=== PATIENT | female | born 1950 | race Caucasian/White ===

== ENCOUNTER 2019-10-23 09:11 | Day surgery (SDC) | payer OTHER, MEDICARE, SELFPAY ==
[2019-10-15 12:47] VITALS: BMI 29.2
[2019-10-23] VITALS (17 sets, daily range): BP systolic 81–150; BP diastolic 42–77; PULSE 57–80; RESP 8–20; TEMP 35.6–36.4; O2SAT 89–99; BMI 29.2
--- NOTE | 2019-10-23 06:00 | DI.RAD.S_ITS ---
PROCEDURE: XR KNEE LT 1TO2V INDICATIONS: post op TECHNIQUE: 2 view(s) of the knee acquired. COMPARISON: X-ray, Left Knee, 07/17/2019. FINDINGS: Bones: Patient is status post knee joint arthroplasty. Hardware components are in expected positions. Visualized bony structures are intact. Soft tissues: Overlying postoperative changes are noted. IMPRESSION: Left knee arthroplasty with prosthesis in anatomic alignment. Dictated by: Antonio Santiago M.D. on 10/23/2019 at 13:55 Approved by: Antonio Santiago M.D. on 10/23/2019 at 13:55
[2019-10-23] MEDS: CELECOXIB 200 MG CAPSULE PO (09:48)
[2019-10-23] MEDS: PREGABALIN 75 MG CAPSULE PO (09:48)
[2019-10-23] MEDS: ACETAMINOPHEN 325 MG TABLET 975 MG PO (09:48)
[2019-10-23] MEDS: LACTATED RINGERS 1,000 ML 42 ML IV ×2 (10:00→11:49)
--- NOTE | 2019-10-23 10:02 | PM.PREOP ---
Pre-operative Note Interval Note History & Physical reviewed/Exam performed by Physician: Yes Changes to H&P: No
--- NOTE | 2019-10-23 10:16 | PM.OP.1 ---
Operative Date/Time/Diagnoses Date of procedure: 10/23/19 Time of procedure: 12:10 Pre-op diagnosis: Left knee osteoarthritis Post-op diagnosis: same Procedure & Clinicians Procedure: Left total knee replacement Same procedure as scheduled: Yes Indications: The patient has had progressively worsening left knee pain with radiographic changes consistent with arthritis. Non-operative management has failed and the patient has requested total knee replacement. The risks, benefits and alternatives to surgery were discussed with the patient prior to proceeding. Risks discussed included, but were not limited to, failure to relieve pain, stiffness, infection, nerve damage, deep venous thrombosis, pulmonary embolism, stroke, coma, heart attack, permanent paralysis and , as well as the potential need for eventual revision of the prosthetic. Surgeon: Newton Gasca Rolling Down Machine Operator: Valentin Hernandez Click Yes if Unassisted: No Anesthesia Type: General, Spinal and Local Operative Notes Findings: Severe medial and moderate patellofemoral osteoarthritis. Closure Type: primary Specimen(s): none sent Prosthetic devices, grafts, tissues, transplants, or devices: Implants used in this procedure were manufactured by the [employer] and [employer] and included the BCS II Journey total knee replacement with a size 5 left Oxinium femoral component, a size 4 left non porous tibial base plate, a 10 mm cross-linked polyethylene tibial insert and a 32 mm all oval Chuyita II patellar component. Applied: implant(s) Estimated Blood Loss (mL): 25 Blood products transfused: none Tourniquet time (min): 50 Procedure in detail: The patient was seen in the pre-operative area, where the left knee was identified as the operative site and this was marked with my initials. The patient received pre-operative antibiotics, and was taken to the operating room and placed on the operative table in the supine position. After satisfactory anesthesia, a stenciling machine tender out? was performed. The left leg was encircled with a tourniquet about the proximal thigh, and the leg was prepared from the toes to the tourniquet with ChloroPrep in the usual fashion and draped through sterile drapes. The leg was elevated and exsanguinated with Eschmark bandage and the tourniquet inflated to 250 mmHg pressure. The knee was approached through an approximately 18 cm incision centered over the patella and carried into the knee through a medial parapatellar arthrotomy. The anterior osteophytes and soft tissues were removed. The rotational landmarks of Arnett's line and the transepicondylar axis were marked on the femur with electrocautery, and intramedullary guide holes for the femur and tibia were created. The distal femoral cut was made in 6 degrees of valgus using the intramedullary guide at the primary cut setting. The proximal tibial cut was then made using the intramedullary guide, taking 9 mm of bone off the less involved side. The extension gap was checked and the rotation of the femoral component confirmed with the gap balancing blocks. The anterior, posterior and chamfer cuts were then made. The posterior osteophytes and soft tissues were then removed. The posterior capsule was injected with part of a mixture of 60 ml 0.25% Marcaine mixed with 20 ml Exparel and 4 mg of morphine for post-operative pain control. The remainder of this mixture was injected into the capsule and subcutaneous tissues during cement curing. The tibia was prepared with the rotation set by an extra medullary guide. Trial tibial and femoral components were then placed and the intercondylar notch cut through the femoral trial. Range of motion was 0-135 degrees, with good stability throughout the range. The patella was then cut to accommodate the patellar prosthetic. There was no need for a lateral release. The trials were then removed, and the femoral hole plugged with a bone plug. The bone was prepared with pulsatile lavage, and dried with a sponge. Cement was applied and the final prosthetics placed. Excess cement was removed during and after cement curing. After confirming there was no extruded cement posteriorly, the final tibial insert was placed. The knee was copiously irrigated and the tourniquet deflated. Hemostasis was obtained. The capsule was closed with interrupted # 2 polyester sutures. The subcutaneous layer was closed with 3-0 Vicryl, and the skin with a running 3-0 V-Lock suture and SteriStrips. An Aquacel Ag dressing was applied and the patient was taken to recovery having tolerated the procedure well. Complications: none Post-operative Condition: stable Disposition: PACU Plan for aftercare: The patient will be maintained on a standard total knee replacement protocol with weight bearing as tolerated. The patient will receive aspirin and sequential compression devices for DVT prophylaxis. The patient will be discharged home when safe for the home environment.
[2019-10-23] MEDS: CEFAZOLIN 2 GM/100 ML FROZ.PIGGY IV (10:45)
[2019-10-23] MEDS: TRANEXAMIC ACID 1,000 MG VIAL 1000 MG INJ ×2 (11:00→12:00)
--- NOTE | 2019-10-23 11:18 | SUR.OPER ---
Supine on padded OR bed. Pillow under head, arms secured on padded armboards <90 degree abduction. Safety belt across torso. Non-operative leg secured with tape over blanket over lower leg. Operative leg secured in DeMayo/Tye positioner. Foam padded brace at thigh of operative leg.
[2019-10-23] MEDS: BUPIVACAINE 0.25% W/ EPI (PF) 10 ML VIAL 60 ML INJ (11:22)
[2019-10-23] MEDS: BUPIVACAINE LIPOSOME 266 MG/20 ML VIAL INJ (11:24)
[2019-10-23] MEDS: MORPHINE 4 MG/ML INJ INJ (11:24)
--- NOTE | 2019-10-23 13:27 | SUR.PHASEI ---
Report called to [facility]ana
[2019-10-23] MEDS: LACTATED RINGERS 1,000 ML 125 ML IV (13:53)
--- NOTE | 2019-10-23 15:00 | PT.IIE ---
Current Diagnoses Unilateral primary osteoarthritis, right knee (10/23/19) Surgery Performed Operation Date: 10/23/19 10:45 Actual Procedures p Total Knee Arthroplasty(Left) - Newton Gasca MD Surgical History (Last Updated 10/15/19 @ 13:16 by Neli Carmichael, RN) History of (Acute) History of colonoscopy (Acute) History of esophagogastroduodenoscopy (EGD) (Acute) History of left oophorectomy (Acute) Hx of tonsillectomy (Acute) Medical History (Last Updated 10/15/19 @ 13:16 by Neli Carmichael, RN) Acid reflux (Acute) Anxiety (Acute) HLD (hyperlipidemia) (Acute) HTN (hypertension) (Acute) Sinus congestion (Acute) Stomach ulcer (Acute) Physical Therapy Inpatient Evaluation/Re-Eval M1 PT/OT-IP Prior Functional Status Start: 10/23/19 15:46 Freq: NEEDED Status: Active Protocol: Document 10/23/19 15:00 AB (Rec: 10/23/19 15:58 AB [id number]) Medical Review Prior Functional Status Medical History Reviewed Yes Communication able to make needs known Mobility and Gait Pt stated that she is independent with all mobilities and ambulation without AD Social History Household Members spouse,family Living Arrangements House Number of Floors (Floors) Two Floors Number of Stairs To Enter/Railing? pt will stay at her daughter's house upon d/c and daughter will assist pt when spouse is at work. has 4 steps to enter with bilateral rails has 12 steps with bilateral rails to get to bedroom level Home Environment Standard Height Toilet,Walk in Shower Home Equipment Front Wheel Walker,Bedside Commode Employment Status Retired Additional Social History Comment has a hurrycane M2 PT-IP Current Condition Start: 10/23/19 15:46 Freq: NEEDED Status: Active Protocol: Document 10/23/19 15:00 AB (Rec: 10/23/19 15:58 AB [id number]) Physical Therapy Current Condition Current Condition Evaluation Date 10/23/19 Treatment Diagnosis s/p L TKA; difficulty in walking Onset Date 10/23/2019 Weight Bearing Status Weight Bearing Status Weight Bear as Tolerated Allowed Weight Bearing Amount (enter % WBAT LLE or #) (%) M3 PT-IP Subjective Start: 10/23/19 15:46 Freq: NEEDED Status: Active Protocol: Document 10/23/19 15:00 AB (Rec: 10/23/19 15:58 AB [id number]) Subjective Physical Therapy Visit Type Type Initial Evaluation Visit Start Time 15:00 Visit Stop Time 15:41 Total Visit Minutes 41 Number of ELECTRIC SWITCH TESTER Visits 0 Physical Therapy Visit Comments Patient Comments pt agreeable to do PT Therapy Pain Assessment Pain Present Pain Present Denied Pain M4 PT-IP Mobility and Gait Start: 10/23/19 15:46 Freq: NEEDED Status: Active Protocol: Document 10/23/19 15:00 AB (Rec: 10/23/19 15:58 AB [id number]) PT-Bed Mobility Assessment Supine to Sit Supine to Sit Standby Assistance Scooting Scooting to Edge of Bed Standby Assistance PT-Transfer Assessment Sit to and From Stand Sit to and from Stand Contact Guard Assistance Equipment Transfer Assistive Device Gait Belt,Front Wheeled Walker Orthotic/Prosthetic Devices or Brace: No Transfers Transfer Destination Chair Transfer Technique ambulated using FWW Transfer Ability Level of Assist Contact Guard Assistance Comments Mobility Comments pt can be impulsive. BP supine: 130/63. completed supine to sit SBA. c/o slight dizziness. BP: 144/65. pt completed sit to stand CGA and ambulated in room ~ 10 ft. c /o dizziness and instructed pt to sit on the chair. pt then c/o nausea and with (+) emesis. BP checked: 150/67. positioned pt on chair. nurse informed. call light and table placed within reach. Gait Assessment Gait Gait Assistance Required: Contact Guard Assist Distance (Feet) 10 Able to Maintain Weight Bearing Status Yes During Gait Assistive Devices Assistive Device Gait Belt,Front Wheeled Walker Orthotic/Prosthetic Devices or Brace: No Gait Deviations General Gait Pattern Antalgic Factors Limiting Gait Function Factors Limiting Gait Function Decreased Activity Tolerance, Poor Balance,Poor Safety Awareness PT-Balance Assessment Sitting Balance and Reactions Static Sitting Balance Ability Good Dynamic Sitting Balance Ability Good Standing Balance and Reactions Static Standing Balance Ability Fair Dynamic Standing Balance Ability Fair Device Used FWW M5 PT-IP Objective Assessments Start: 10/23/19 15:46 Freq: NEEDED Status: Active Protocol: Document 10/23/19 15:00 AB (Rec: 10/23/19 15:58 AB [id number]) Orientation Orientation/Cognition Level of Alertness Alert Orientation Name,Place,Situation Language Function Ability No Deficits Noted Safety Awareness Decreased Safety Awareness Memory Description No Deficits Noted Gross Range of Motion Lower Extremity ROM Assessment Within Functional Limits Impairments L knee flexion; ~ 100 Deg Strength Lower Extremity Strength Assessment Left Impaired Hip 4-/5 Knee 4-/5 Coordination Assessment Gross Coordination Gross Coordination WNL Sensation Assessment Sensation Gross Sensation WNL Muscle Tone Muscle Tone WNL Yes M6 PT-IP Treatment Start: 10/23/19 15:46 Freq: NEEDED Status: Active Protocol: Document 10/23/19 15:00 AB (Rec: 10/23/19 15:58 [id number]) Physical Therapy Treatment Exercises Exercises Heel Slides Education Education Provided Precautions,Weight Bearing Status,Post-Op Packet,Safety M7 PT-IP Assessment and Plan Start: 10/23/19 15:46 Freq: NEEDED Status: Active Protocol: Document 10/23/19 15:00 AB (Rec: 10/23/19 15:58 [id number]) PT Summary Assessment and Plan Potential Rehabilitation Potential Good Status of Condition at Evaluation Evolving Summary Impairments Pain,ROM,Strength,Balance, Coordination,Sensation,Tone, Cognition,Bed Mobility, Transfers,Gait,Activity Tolerance Assessment Summary pt requiring CGA with mobility but unable to tolerate much activity due to c/o dizziness, nausea with (+) emesis. BP is stable. pt also can be impulsive and cues provided to slow down. pt just had surgery this morning. pt will likely improve during hospital stay. pt plans to go to her daughter's house after hospitalization and spouse/ daughter will assist pt. will have to conduct caregiver training when appropriate as well as complete stair climbing training. Goals Bed Mobility Goal Independent Transfer Goal Independent,Front Wheeled Walker Gait Goal Independent,Front Wheel Walker Gait Distance 200 Other Goals up/down 12 step B rails SBA Days to Meet Goals 5 Frequency of Treatment Frequency Of Treatment Twice a Day Treatment Plan Physical Therapy Treatment Plan Bed Mobility Training,Transfer Training,Gait Training, Therapeutic Exercise,Balance Retraining,Post Op Education, Discharge Planning,Hot or Cold Pack,Neuromuscular Re-ed, Coordination Retraining,Manual Therapy Other Recommendations and Next Treatment ambulation, stair climbing Focus training, caregiver training when appropriate Recommendations To Nursing Amount of Assist Needed 1 Person Assist Discharge Recommendations PT Discharge Recommendations Home with Assistance, Outpatient PT
--- NOTE | 2019-10-23 15:26 | PC.NURSE ---
Post-op: Late entry Arrived to room 211 at 1335. Awake and alert, oriented X3. Venkat wrap and dressing to L knee C/D/I. Able to move legs, wiggle toes, and feels sensation returning to BLE's. PP+, cap refill <2 sec, feet warm and pink. Denies pain. Denies N/V. IVF per orders. O2 via nasal cannula at 2L. Vitals stable. Oriented to room and call light, encouraged to make needs known. Call light within reach, bed alarm on.
[2019-10-23] MEDS: OXYCODONE IR 5 MG TABLET PO (16:56)
[2019-10-23] MEDS: ACETAMINOPHEN 325 MG TABLET 650 MG PO ×2 (16:57→21:56)
[2019-10-23] MEDS: ONDANSETRON 4 MG ODT PO (16:57)
--- NOTE | 2019-10-23 19:46 | PC.NURSE ---
Evening note: Jennifer sitting up in recliner after having worked with P.T. Had small amt of emesis after movement. Pt reported that emesis relieved the nausea and she was not really nauseated to begin with, as it was meal time I administered Zofran 4 mg SL. Also reported L knee discomfort, able to lift leg off chair, CMS intact, denies numbness or tingling, pedal pulses are strong. Medicated with oxycodone 5 mg, she has denied pain since that time. READY TO WEAR DEPARTMENT MANAGER in room to assist patient to BR to attempt void, patient slightly unsteady, needing one person assist/fww/gait belt for safe transfer. She told me I was incontinent of urine when I threw up earlier-and also with the therapist. also able to void 50 ml measured urine output. Transferred back to recliner. Will assist her to BSC/BR prior to 2200 to attempt void again. VS remain stable. Now weaned to RA, oxygen saturation is 95-99%, IS teaching given. Fall precautions in place, patient instructed to call staff for any needs/concerns.
[2019-10-23] MEDS: DOCUSATE 100 MG CAPSULE PO (21:56)
[2019-10-23] MEDS: ASPIRIN EC 81 MG TABLET PO (21:56)
[2019-10-23] MEDS: SIMVASTATIN 10 MG TABLET PO (21:56)
[2019-10-24] MEDS: IBUPROFEN 400 MG TABLET PO (04:22)
[2019-10-24 04:31] VITALS: BP 105/53; PULSE 67; RESP 18; TEMP 36.8; O2SAT 96
[2019-10-24 06:10] LABS: Hematocrit 32.5 % (36-46); Hemoglobin 11.1 g/dL (12.0-16.0)
--- NOTE | 2019-10-24 06:11 | PC.NURSE ---
Pt is doing really well. Mostly just states left knee is more soreness than pain. Only requesting Advil overnight; wants a narcotic before PT. IVF running throughout night; turned off this morning. No nausea reported.
[2019-10-24 07:35] VITALS: BP 98/53; PULSE 63; RESP 18; TEMP 36.5; O2SAT 96
--- NOTE | 2019-10-24 07:44 | PM.DS.1 ---
History of Present Illness History of Present Illness Date Patient Seen: 10/24/19 Time Patient Seen: 07:44 Chief complaint: Left Total Knee Arthroplasty *OPB* Narrative: The history and physical is contained in the chart previously completed note. Please refer to that note for this information. Discharge Providers Provider Discharge Date: 10/24/19 Primary care physician: Tyrel Christie MD Consults: 10/23/19 13:45 Consult to Discharge Planning Routine Comment: Consult to Physical Therapy Evaluate & Treat Comment: Physician Instructions: postop TKA protocol Discharge provider: Newton Gasca MD Summary Hospital Course Discharge Diagnosis: 1. Left knee osteoarthritis 2. Mild post hemorrhagic anemia Hospital Course: The patient was admitted to the hospital and taken directly to the operating room on October 23, 2019. She underwent a left total knee replacement without complications. On postoperative day 1 it appeared she would be ready for discharge. Status at Discharge Cognitive/behavioral status at discharge: oriented Functional status at discharge: uses cane/walker Overall status at discharge: patient is progressing back to baseline Time Spent with Patient Time spent: Less than 30 minutes Exam Vital Signs (past 8 hours): - 10/24/19 04:31 Temperature 98.2 F Pulse Rate 67 Respiratory Rate 18 Blood Pressure 105/53 L Pulse Oximetry 96 Oxygen Delivery Method Nasal Cannula Oxygen Flow Rate 2 Narrative Exam Narrative: Left knee wound is dressed with no drainage on the bandage. Calf is soft. Light touch and motion are intact in the left lower extremity. Objective Labs Result Diagrams: 10/24/19 06:00 Labs: Laboratory Results - last 24 hr 10/24/19 06:00 Hgb 11.1 L Hct 32.5 L Discharge Plan Discharge Plan Patient Disposition: Home Discharge Med Rec/Prescriptions Prescriptions: New acetaminophen 325 mg Tablet 650 mg PO TID 30 Days Qty: 180 RF: 0 aspirin 81 mg Tablet,Delayed Release (Dr/Ec) 81 mg PO BID 42 Days Qty: 84 RF: 0 oxycodone 5 mg Tablet 5 mg PO Q4H PRN (Reason: Pain, Moderate (4-6)) Qty: 60 RF: 0 Continued metoprolol succinate 50 mg Tablet Extended Release 24 Hr 50 mg PO DAILY RF: 0 propranolol 10 mg Tablet 10 mg PO TID PRN (Reason: Anxiety) RF: 0 pantoprazole 40 mg Tablet,Delayed Release (Dr/Ec) 40 mg PO DAILY RF: 0 lisinopril 40 mg Tablet 40 mg PO DAILY RF: 0 simvastatin 10 mg Tablet 10 mg PO BEDTIME RF: 0 ibuprofen 200 mg Tablet 400 mg PO Q6H PRN (Reason: Pain) RF: 0 Suphedrine PE 10 mg Tablet 10 mg PO BID RF: 0 Follow up/Referrals: Newton Gasca MD [Physician] - 3-5 Days Discharge Orders: Discharge (Order); Ordered 10/24/19 Ordered By: Newton Gasca Provider Discharge Instructions Diet: Diet as Tolerated and Regular Activity: You may bear weight as tolerated on your left leg. Cold/Heat Therapy: Apply ice for 15 minutes every hour as needed to the left knee for pain control. Skin/Wound/Dressing Care Report to your healthcare provider any signs of infection, such as:: chills, fever, night sweats, increased pain, unusual drainage and unusual redness Dressing: You may remove the Venkat wrap 3 days after surgery. You may shower with the deeper dressing in place. Leave the deeper dressing in place until your follow-up. If the central strip of the deeper dressing becomes saturated with either water or blood please contact the office. Visit Report/Discharge Packet Instructions: DI for Knee Replacement Stand Alone Forms: Surgery Discharge Discharge Data Primary Care Provider: Tyrel Christie Attending Provider: Newton Gasca
[2019-10-24] MEDS: ACETAMINOPHEN 325 MG TABLET 650 MG PO (07:56)
[2019-10-24] MEDS: DOCUSATE 100 MG CAPSULE PO (07:57)
[2019-10-24] MEDS: ASPIRIN EC 81 MG TABLET PO (07:57)
[2019-10-24] MEDS: OXYCODONE IR 5 MG TABLET PO (07:57)
[2019-10-24] MEDS: PANTOPRAZOLE 40 MG TABLET PO (07:58)
[2019-10-24 08:20] VITALS: O2SAT 93
--- NOTE | 2019-10-24 10:43 | PT.IPTN ---
Current Diagnoses Unilateral primary osteoarthritis, right knee (10/23/19) Surgery Performed Operation Date: 10/23/19 10:45 Actual Procedures p Total Knee Arthroplasty(Left) - Newton Gasca MD Physical Therapy Treatment Note M2 PT-IP Current Condition Start: 10/23/19 15:46 Freq: NEEDED Status: Active Protocol: Document 10/23/19 15:00 AB (Rec: 10/23/19 15:58 AB [id number]) Physical Therapy Current Condition Current Condition Evaluation Date 10/23/19 Treatment Diagnosis s/p L TKA; difficulty in walking Onset Date 10/23/2019 Weight Bearing Status Weight Bearing Status Weight Bear as Tolerated Allowed Weight Bearing Amount (enter % WBAT LLE or #) (%) M3 PT-IP Subjective Start: 10/23/19 15:46 Freq: NEEDED Status: Active Protocol: Document 10/24/19 09:15 MB (Rec: 10/24/19 10:43 MB [id number]) Subjective Physical Therapy Visit Type Type Treatment Note Visit Start Time 09:15 Visit Stop Time 09:53 Total Visit Minutes 38 Number of SEED SALES MANAGER Visits 0 Physical Therapy Visit Comments Patient Comments Pt is agreeable to PT. She is hoping to go to her daughter's today Therapy Pain Assessment Pain When Pain Assessed At Rest Pain Present Pain Present Denied Pain M4 PT-IP Mobility and Gait Start: 10/23/19 15:46 Freq: NEEDED Status: Active Protocol: Document 10/24/19 09:15 MB (Rec: 10/24/19 10:43 MB [id number]) PT-Bed Mobility Assessment Supine to Sit Supine to Sit Independent Scooting Scooting to Edge of Bed Independent PT-Transfer Assessment Sit to and From Stand Sit to and from Stand Contact Guard Assistance Equipment Transfer Assistive Device Gait Belt,Front Wheeled Walker Orthotic/Prosthetic Devices or Brace: No Transfers Transfer Destination Bed Transfer Technique ambulated using RW Comments Mobility Comments Pt requires CGA for first 2 sit to stand transfers given tending to reach for walker and initially impulsive. Practiced 8 more times and she is I with transferring to and from bed and chair to walker, reaching back with right hand and pushing up from right hand Gait Assessment Gait Gait Assistance Required: Independent Distance (Feet) 200 Able to Maintain Weight Bearing Status Yes During Gait Assistive Devices Assistive Device Gait Belt,Front Wheeled Walker Orthotic/Prosthetic Devices or Brace: No Gait Deviations General Gait Pattern Within Normal Limits Comments Gait Comments Improved gait today. She is able to present with heel toe gait pattern and step-through gait. Stair Climbing Assessment Evaluation Level of Assist On Stairs Standby Assistance Devices Stair Climbing Assistive Devices Left Railing,Right Railing Technique/Endurance Stair Climbing Direction Ascend and Descend Stair Climbing Technique Step to Step Number of Steps Climbed 3 Stair Climbing Set # Repetitions (reps) 1 Comments Stair Climbing Comments Pt requires cues to walk up to steps with RW and then allow second person (PT during treatment and at d/c today), to move the walker around her to her side. Ed in step-to gait, right foot and then left foot to ascend and reverse descend PT-Balance Assessment Sitting Balance and Reactions Static Sitting Balance Ability Good Dynamic Sitting Balance Ability Good Standing Balance and Reactions Static Standing Balance Ability Good Dynamic Standing Balance Ability Good Device Used RW M5 PT-IP Objective Assessments Start: 10/23/19 15:46 Freq: NEEDED Status: Active Protocol: Document 10/23/19 15:00 AB (Rec: 10/23/19 15:58 AB [id number]) Orientation Orientation/Cognition Level of Alertness Alert Orientation Name,Place,Situation Language Function Ability No Deficits Noted Safety Awareness Decreased Safety Awareness Memory Description No Deficits Noted Gross Range of Motion Lower Extremity ROM Assessment Within Functional Limits Impairments L knee flexion; ~ 100 Deg Strength Lower Extremity Strength Assessment Left Impaired Hip 4-/5 Knee 4-/5 Coordination Assessment Gross Coordination Gross Coordination WNL Sensation Assessment Sensation Gross Sensation WNL Muscle Tone Muscle Tone WNL Yes M6 PT-IP Treatment Start: 10/23/19 15:46 Freq: NEEDED Status: Active Protocol: Document 10/24/19 09:15 MB (Rec: 10/24/19 10:43 MB [id number]) Physical Therapy Treatment Exercises Exercises Ankle Pumps,Heel Slides,Seated Knee Flexion/Extension Knee ROM Measurement 90 flexion in sitting Education Education Provided Post-Op Packet,Safety Other Treatments Other Treatment Performed Ed pt in safe entrance and exit into her 's truck, benefits of boots today d/t snow and ice, benefits of elevation and icing and APs during this M7 PT-IP Assessment and Plan Start: 10/23/19 15:46 Freq: NEEDED Status: Active Protocol: Document 10/24/19 09:15 MB (Rec: 10/24/19 10:43 MB [id number]) PT Summary Assessment and Plan Summary Assessment Summary Pt has met PT goals in the acute setting and her is coming to take her and himself to their daughter's house. She has outpatient PT set-up and will have transportation asst and asst as needed at d/c. She verbalizes and demonstrates safety with stair training today. Will d/c acute PT. Frequency of Treatment Frequency Of Treatment Discharge Treatment Plan Other Recommendations and Next Treatment Assist at d/c and transition Focus to outpatient PT Discharge Recommendations PT Discharge Recommendations Home with Assistance, Outpatient PT
--- NOTE | 2019-10-24 13:53 | CM.IDA ---
Initial DCP Assessment Note: Pt is a 69 yo female, resident of [place], now POD#1 from left knee surgery w/ Dr Gasca PCP: Tyrel Christie Payer: [employer] Reviewed chart, pt discussed in multidisciplinary rounds this morning. Therapy has cleared pt for return home w/family to assist and pt has planned for home, DC order from [facility] has already been initiated this morning. Met w/pt briefly as MARII Lion was going over DC instructions, pt was in good spirits and stated no needs from this [employer]PER[employer]. P: DC home w/family via pov today, outpt PT Feli Rodas, [employer]ATOR
== END 2019-10-24 11:10 | disposition home or self-care (01) ==
LOC: OR 12:26 → AC 13:42
PROVIDERS: Visit Provider Orthopaedic Surgery
PROC: 0SRD0JZ Replacement of Left Knee Joint with Synthetic Substitute, Open Approach (ICD-10-PCS; CPT 27447; principal; 2019-10-23 10:45)
DX: M17.12 Unilateral primary osteoarthritis, left knee (principal); I10 Essential (primary) hypertension
CPT/HCPCS: 27447; 36415; 73560; 85014; 85018; 97110; 97116; 97162; 97530; C1776; C9290; J0690; J1100; J2250; J2270; J2274; J2405; J2704

== ENCOUNTER → 2020-08-16 15:35 | Outpatient (CLI) | payer OTHER, MEDICARE, SELFPAY ==
[2019-10-23 13:49] VITALS: BMI 29.2
--- NOTE | 2020-08-16 15:38 | DI.MG.S_ITS ---
BILATERAL DIGITAL SCREENING MAMMOGRAM 3D/2D WITH CAD: 08/16/2020 CLINICAL: Routine screening. Family history of breast cancer. Comparison is made to exams dated: 02/04/2015 mammogram, 04/28/2016 mammogram, and 06/09/2017 mammogram - [facility]. The tissue of both breasts is predominantly fatty. Current study was also evaluated with a Computer Aided Detection (CAD) system. There are benign diffuse calcifications in both breasts. No significant masses, calcifications, or other findings are seen in either breast. There has been no significant interval change. IMPRESSION: BENIGN There is no mammographic evidence of malignancy. A 1 year screening mammogram is recommended. This exam was interpreted at Station ID: [id number]. NOTE: For mammograms, a report in lay terms will be sent to the patient. Approximately 15% of breast malignancies will not be visualized mammographically. In the management of a palpable breast mass, a negative mammogram must not discourage biopsy of a clinically suspicious lesion. Electronically Signed By: Wilmer [email or web address]:08/17/2020 14:56:51 letter sent: Normal Exam ACR BI-RADS Category 2: Benign Finding(s) 3342F
== END ==
PROVIDERS: PCP Family Medicine; Referring Provider Family Medicine; Visit Provider Family Medicine
DX: Z12.31 Encounter for screening mammogram for malignant neoplasm of breast (principal); Z80.3 Family history of malignant neoplasm of breast
CPT/HCPCS: 77063; 77067

== ENCOUNTER → 2022-08-20 11:14 | Outpatient (CLI) | payer MEDICARE, OTHER, SELFPAY ==
[2022-03-26 10:41] VITALS: BMI 29.2
== END ==
PROVIDERS: PCP Family Medicine; Referring Provider Family Medicine; Visit Provider Family Medicine
DX: M81.0 Age-related osteoporosis without current pathological fracture (principal); M06.9 Rheumatoid arthritis, unspecified
CPT/HCPCS: 77080

== ENCOUNTER → 2024-07-30 16:54 | Outpatient (CLI) | payer MEDICARE, OTHER, SELFPAY ==
[2022-03-26 10:41] VITALS: BMI 29.2
--- NOTE | 2024-07-30 16:56 | DI.MRI.S_ITS ---
PROCEDURE: MR HEAD/BRAIN WO CON INDICATIONS: FOOT DROP,LEFT TECHNIQUE: Non-contrast axial T1 spin echo, axial T2 fast spin echo, sagittal and axial FLAIR, coronal T2 fast spin echo, axial gradient echo, axial diffusion and ADC through the brain. COMPARISON: None. FINDINGS: Image quality: Excellent. CSF spaces: Ventricles appear symmetric in size and shape. Basal cisterns are patent. No extra-axial fluid collections. Brain: No intracranial bleeds or mass effects. There is cerebral volume loss for age. There are periventricular and deep white matter chronic small vessel ischemic changes. Brainstem appears normal. Diffusion-weighted images show no acute infarct. No chronic ischemic insults. Normal intravascular flow voids are present. Skull and face: Calvarial bone marrow is normal in signal. Orbits are normal. Sinuses: Sinuses and mastoids are clear. IMPRESSION: Brain MRI within normal limits for age, with brain parenchymal volume loss and chronic small vessel ischemic change noted. To the limits of this noncontrast study, no findings of intracranial masses or mass effect can be seen. No findings of acute or subacute infarction can be seen. No prior territorial infarct can be seen. Dictated by: Carlyle Khan M.D. on 07/30/2024 at 18:00 Approved by: Carlyle Khan M.D. on 07/30/2024 at 18:01
== END ==
PROVIDERS: PCP Family Medicine; Referring Provider Family Medicine; Visit Provider Family Medicine
DX: I63.9 Cerebral infarction, unspecified (principal); M21.372 Foot drop, left foot
CPT/HCPCS: 70551

== ENCOUNTER → 2025-09-29 12:48 | Outpatient (CLI) | payer MEDICARE, OTHER, SELFPAY ==
[2022-03-26 10:41] VITALS: BMI 29.2
--- NOTE | 2025-09-29 12:50 | DI.MRI.S_ITS ---
PROCEDURE: MR SHOULDER RT WO CON INDICATIONS: rt shoulder pain TECHNIQUE: Noncontrast oblique coronal T2 fast spin echo with fat saturation, oblique sagittal T1 spin echo and T2 fast spin echo with fat saturation, axial T1 spin echo and T2 fast spin echo with fat saturation through the shoulder. COMPARISON: None. FINDINGS: Quality: Adequate. Tendons: Rotator cuff tendons: Greater than 50 percent thickness delaminating articular sided tear of the supraspinatus and infraspinatus tendons. Teres minor tendon is intact. Less than 50 percent thickness articular sided tear of subscapularis tendon. Long head of biceps tendon: Complete rupture and retraction from the biceps labral anchor. Muscles: No disproportionate fatty degeneration of the rotator cuff musculature. Acromioclavicular joint: Mild degenerative change Glenohumeral joint: Labrum: Diffuse degeneration and anteroinferior fairing. Cartilage: Non uniform thinning along the medial and superior humeral head. Fluid: Large effusion Capsule: No pericapsular inflammation or scarring. Alignment: No dislocation. Bursa: Subacromial/subdeltoid bursa: Distended Subcoracoid bursa: Nondistended. Bones: Minimally displaced Osteochondral fracture of the anteroinferior glenoid with marrow edema throughout the glenoid and neck of the scapula. IMPRESSION: High-grade partial-thickness supraspinatus/infraspinatus tendon tear. Intermediate-grade partial-thickness subscapularis tendon tear. Rupture of long head of biceps tendon. Osteochondral fracture of the anterior inferior glenoid. IsSubacromial/subdeltoid bursitis Dictated by: Kodi Dempsey M.D. on 09/30/2025 at 9:08 Approved by: Kodi Dempsey M.D. on 09/30/2025 at 9:16
== END ==
LOC: MRI 12:49
PROVIDERS: PCP Family Medicine; Referring Provider Family Medicine; Visit Provider Family Medicine
DX: S42.144A Nondisplaced fracture of glenoid cavity of scapula, right shoulder, initial encounter for closed fracture (principal); S46.011A Strain of muscle(s) and tendon(s) of the rotator cuff of right shoulder, initial encounter; S46.111A Strain of muscle, fascia and tendon of long head of biceps, right arm, initial encounter; M75.51 Bursitis of right shoulder; X58.XXXA Exposure to other specified factors, initial encounter
CPT/HCPCS: 73221